=== PATIENT | male | born 1985 | race Caucasian/White ===

== ENCOUNTER 2024-11-12 07:07 | Outpatient (CLI) | payer BC, SELFPAY ==
--- NOTE | 2024-11-12 07:10 | US_ITS ---
WS: [id number] RIGHT UPPER QUADRANT ULTRASOUND HISTORY: ELEVATED LIVER ENZYMES COMPARISON: None available. Liver: 14.8 cm in length. Diffuse coarse echotexture throughout the liver. No mass identified. No intrahepatic duct dilatation. Portal Vein: Normal hepatopetal flow with monophasic waveform. Gallbladder: Normally distended gallbladder with no stones or wall thickening. CBD: 0.4 cm Pancreas: Echogenic pancreas. No mass or pancreatic duct dilatation. Right kidney: 9.3 cm in length. Normal size and echogenicity. No hydronephrosis or mass. Aorta and IVC: Unremarkable abdominal aorta and IVC. No ascites. US/US abdomen limited 34452 IMPRESSION: 1. Normal gallbladder. 2. No intrahepatic duct dilatation. 3. Normal size liver with hepatic steatosis.
== END 2024-11-12 07:08 | disposition home or self-care (01) ==
LOC: RAD 07:09
PROVIDERS: PCP Family Medicine; Visit Provider Family Medicine
DX: R74.8 Abnormal levels of other serum enzymes (principal); K76.0 Fatty (change of) liver, not elsewhere classified
CPT/HCPCS: 76705

== ENCOUNTER 2024-11-17 07:29 | Day surgery (SDC) | payer BC, SELFPAY ==
[2024-11-17 07:51] VITALS: BP 131/88; PULSE 75; RESP 18; TEMP 36.3; O2SAT 98; BMI 34.9
[2024-11-17] MEDS: sodium chloride 0.9% 500 ML 15 ML IV (07:58)
--- NOTE | 2024-11-17 08:12 | P.ANESASSM_ITS ---
Pre-Anesthetic Assessment Height/Weight: Height 1.75 m Weight 107.501 kg Temp Pulse Resp BP Pulse Ox O2 Del Method 97.4 F L 75 18 131/88 98 Room Air 11/17/24 07:51 11/17/24 07:51 11/17/24 07:51 11/17/24 07:51 11/17/24 07:51 11/17/24 07:51 Preop Diagnosis: Ulcer Operation Date: 11/17/24 08:30 Proposed Procedures p EGD 59395, K21.9, R10.9(Not Applicable) - Andrew Liu DO Familial anesthetic complications: none Was Beta Cynthia taken within 24 hours: N/A Was Clonidine taken within 24 hours: N/A Last intake: Intake Last Liquid Date 11/16/24 Last Liquid Time 20:00 Last Solid Date 11/16/24 Last Solid Time 20:00 Social No alcohol and No tobacco Exam alert, oriented x 3, clear to auscultation bilaterally and regular rate & rhythm Airway Submandibular: within normal limits Cervical ROM: within normal limits Mallampati: Class II Dentition: full History/ROS No significant history except as noted and No significant complaints Pulmonary Exertional Dyspnea CV/HEM None reported None reported Hepatic None reported GI Gastroesophageal Reflux Disease Metabolic Thyroid Disease [facility] [place] None reported Neuropsych Anxiety and Depression Anesthetic Plan ASA status: 2 Anesthesia: MAC Risk of > 500 ml blood loss (7ml/kg in children): No Medications/Allergies Home Medications ?Medication ?Instructions ?Recorded ?Confirmed ?Last Taken ?Type levothyroxine 50 mcg tablet 50 mcg PO DAILY 01/16/23 0 11/15/24 11/16/24 History (Euthyrox) pantoprazole 40 mg tablet,delayed 40 mg PO BID 6 weeks #84 tabs 11/04/24 11/15/24 11/16/24 Rx release (Protonix) paroxetine HCl 20 mg tablet 20 mg PO DAILY 11/15/2411/16/24 History Allergies Allergy/AdvReac Type Severity Reaction Status Date / Time Rodents Allergy Intermediate Unknown Uncoded 01/16/23 12:49 Current Medications Generic Name Dose Route Start Last Admin Trade Name Freq PRN Reason Stop Dose Admin Sodium Chloride 500 mls @ 15 mls/hr 11/17/24 07:34 11/17/24 07:58 Sodium Chloride 0.9% IV 11/18/24 07:33 15 mls/hr .Q24H PRN Administration COLONOSCOPY FLUIDS PFSH Anesthesia Social History Smoking and tobacco/nicotine status: never used tobacco/nicotine Data Anesthesia Cardiac Studies: No Data to Display
--- NOTE | 2024-11-17 08:31 | W.PM.OPSUD ---
Surgery/Procedure H&P Update DATE OF PROCEDURE: November 17, 2024 DATE H&P PERFORMED: 11/04/24 H&P UPDATE INFORMATION: I have reviewed H&P completed within last 30 days, I have examined patient prior to procedure and No changes to prior documentation PREOP DIAGNOSIS: Ulcer PLANNED PROCEDURE: Operation Date: 11/17/24 08:30 Proposed Procedures p EGD 54617, K21.9, R10.9(Not Applicable) - Andrew Liu,
[2024-11-17 08:43] VITALS: BP 126/86; PULSE 81; RESP 16; TEMP 36.6; O2SAT 94
[2024-11-17 08:53] VITALS: BP 108/78; PULSE 75; RESP 16; O2SAT 94
[2024-11-17 09:02] VITALS: BP 118/73; PULSE 70; RESP 16; O2SAT 95
--- NOTE | 2024-11-17 09:15 | ANE.PACU2 ---
Inpatient post-anesthesia follow up: Airway intact: Yes Vital signs: Temperature 97.9 F Pulse Rate 70 Respiratory Rate 16 Blood Pressure 118/73 Pulse Oximetry 95 Oxygen Delivery Me thod Room Air Oxygen Flow Rate Fraction of Inspir ed Oxygen Hydration adequate: Yes Nausea and vomiting: No Pain level: 1 Mental status: Baseline
== END 2024-11-17 09:15 | disposition home or self-care (01) ==
PROVIDERS: PCP Family Medicine; Visit Provider Surgery
PROC: 0DJ08ZZ Inspection of Upper Intestinal Tract, Via Natural or Artificial Opening Endoscopic (ICD-10-PCS; principal; 2024-11-17 08:30)
DX: K29.50 Unspecified chronic gastritis without bleeding (principal); K21.9 Gastro-esophageal reflux disease without esophagitis; R10.13 Epigastric pain; Z79.890 Hormone replacement therapy; F41.9 Anxiety disorder, unspecified; F32.A Depression, unspecified; Z79.899 Other long term (current) drug therapy
CPT/HCPCS: 43239; 88305; 88342; J2704; J7040